=== PATIENT | male | born 1995 | race Caucasian/White ===

== ENCOUNTER 2020-12-09 15:17 | Emergency (ER) | payer OTHER ==
--- NOTE | 2020-12-09 16:05 | NUR ---
CALLED TO TRIAGE,NO ANSWER
--- NOTE | 2020-12-09 16:10 | NUR ---
CAALED TO TRAIGE, STILL NO ANSWER
[2020-12-09] MEDS ORDERED: IBUP-1955 PO (18:45)
[2020-12-09] MEDS ORDERED: PROM118S5 PO (18:45)
== END 2020-12-09 16:17 | disposition left against medical advice (07) ==
LOC: ER 15:21
DX: Z53.21 Procedure and treatment not carried out due to patient leaving prior to being seen by health care provider (principal)

== ENCOUNTER 2020-12-09 18:31 | Emergency (ER) | payer OTHER ==
[~2020-12-09] VITALS: Ht 177.8 cm; Wt 72.6 kg
[2020-12-09 18:33] VITALS: BP 117/80
[2020-12-09] MEDS ORDERED: IBUP-1955 PO (18:45)
[2020-12-09] MEDS ORDERED: PROM118S5 PO (18:45)
--- NOTE | 2020-12-09 19:14 | NUR ---
COVID SWABB COLLECTED. SENT TO LAB. PT DC IN STABLE CONDITION.
== END 2020-12-09 19:15 | disposition home or self-care (01) ==
LOC: ER 18:32
DX: J06.9 Acute upper respiratory infection, unspecified (principal); Z20.822 Contact with and (suspected) exposure to COVID-19
CPT/HCPCS: 99283; C9803; U0003